=== PATIENT | female | born 1970 | race African-American/Black ===

== ENCOUNTER 2017-07-10 12:33 | Day surgery (SDC) | payer MEDICAID ==
[2017-07-09 11:04] VITALS: BMI 27.6
[2017-07-10] MEDS ORDERED: Lidocaine 1% w/Epinephrine 1:200K 30 ML VIAL ONE (13:42)
[2017-07-10] MEDS ORDERED: Midazolam HCl 2 mg/2 ml Vial ONE (13:44)
[2017-07-10] MEDS ORDERED: Fentanyl 100 MCG/2 ML VIAL ONE (13:44)
[2017-07-10] MEDS ORDERED: PROPOFOL 200 MG/20 ML VIAL ONE (14:34)
[2017-07-10] MEDS ORDERED: Dexamethasone 20 MG/5 ML VIAL ONE (14:34)
[2017-07-10] MEDS ORDERED: Lidocaine 1% PF 5 ML VIAL ONE (14:34)
[2017-07-10] MEDS ORDERED: Promethazine HCl 25 MG/ML VIAL ONE (15:01)
[2017-07-10] MEDS ORDERED: Meperidine HCl/PF 25 MG/ML VIAL ONE (15:17)
[2017-07-10] MEDS ORDERED: Hydrocodone-Acetamin 15 ML UDCUP ONE (16:44)
--- NOTE | 2017-07-11 10:13 | OP ---
PREOPERATIVE DIAGNOSIS: Multiple cervical lymphadenopathy. POSTOPERATIVE DIAGNOSIS: Multiple cervical lymphadenopathy. PROCEDURE PERFORMED: Deep neck excisional biopsy. PROCEDURE IN DETAIL: After consent was obtained, the patient was identified, brought to the operatin g room and placed in supine position. General endotracheal anesthesia was obtained. The patient was positioned for surgery. The submental area was identified as the point of the incision. A 4-cm inc ision was made through the skin and subcutaneous tissues after been infiltrated with 1% lidocaine wit h 1:100,000 epinephrine. We then dissected down through the skin, subcutaneous tissues, and platysma . We then encountered the anterior digastric muscles, which were divided in midline. We then encoun tered a large 3-4 cm mass which was removed intact and sent for histologic evaluation with a fresh sp ecimen lymphoma panel was requested. We then obtained hemostasis and turned our attention to closing the wound. The wound was closed in layers with the digastric muscles were reapproximated followed b y the mylohyoid. The platysma was reapproximated as well with absorbable suture as was the subcutane ous tissues, and platysma. Skin was closed with a 6-0 Prolene. Sterile dressing was applied. The p atient was awakened and taken to recovery room and remained in stable condition prior to discharge ho ks.
== END 2017-07-10 17:05 | disposition home or self-care (01) ==
LOC: SDC 12:33
PROVIDERS: ATTEND Specialist
PROC: 0JB50ZZ Excision of Left Neck Subcutaneous Tissue and Fascia, Open Approach (ICD-10-PCS; principal; 2017-07-10)
PROC: 0JB40ZZ Excision of Right Neck Subcutaneous Tissue and Fascia, Open Approach (ICD-10-PCS; principal; 2017-07-10)
DX: R22.1 Localized swelling, mass and lump, neck (principal); I88.8 Other nonspecific lymphadenitis; I10 Essential (primary) hypertension; K21.9 Gastro-esophageal reflux disease without esophagitis
CPT/HCPCS: 88184; 88305; 88307; 93005; 93010; 96374; J1100; J2001; J2175; J2250; J2550; J2704; J3010